=== PATIENT | female | born 1975 | race Caucasian/White ===

== ENCOUNTER 2018-05-21 06:03 | Inpatient (IN) ==
[~2018-05-21 06:03] MED LIST: LIDOCAINE W/ SODIUM BICARB 0.5 ML SYR ONE; LIDOCAINE W/ SODIUM BICARB 0.5 ML SYR SUBD ONE; Lactated Ringers 1,000 ML PRIMARY IV ONE; Nasal Sanitizer POPSWAB ampule 3 AMP (Nozin) PREOP DOSE ENOS SCH; Sodium Chloride 0.9% 250 ML ONE; Vancomycin Inj 1gm vial ONE; ceFAZolin Inj 2gm (Premix) 2 GM/50 ML BAG IV ONE
[2018-05-21 06:23] LABS: BILIRUBIN,URINE SMALL (NEG); CLARITY,URINE CLEAR (CLEAR); COLOR,URINE YELLOW (Y); GLUCOSE, URINE (UA) NEGATIVE (NEG); OCCULT BLOOD,URINE NEGATIVE (NEG); PROTEIN,URINE TRACE mg/dl (NEG); UROBILINOGEN,URINE 0.2 EU/dL (0.2)
[2018-05-21 06:27] LABS: URINE SAMPLE TYPE CLEAN CATCH URINE
[2018-05-21] MEDS ORDERED: fentaNYL Inj 100 MCG/2 ML VIAL ONE (06:51)
[2018-05-21] MEDS ORDERED: fentaNYL Inj 100 MCG/2 ML VIAL IVP ONE (06:52)
[2018-05-21] MEDS ORDERED: Sodium Chloride 0.9% vial 30 ML ONE (07:10)
[2018-05-21] MEDS ORDERED: BUPIVACAINE 0.25% W/ EPI - 10 ML VIAL ONE (07:11)
[2018-05-21] MEDS ORDERED: BACITRACIN 50,000 UNIT VIAL IRRIG ONE (07:11)
[2018-05-21] MEDS ORDERED: fentaNYL Inj 250 MCG/5 ML VIAL ONE (07:32)
[2018-05-21] MEDS ORDERED: SUCCINYLCHOLINE CHLORIDE 20 MG/1 ML - 10 ML ONE (07:35)
[2018-05-21] MEDS ORDERED: ROCURONIUM 10 MG/1 ML - 5 ML VIAL IVP ONE (07:35)
[2018-05-21] MEDS ORDERED: KETAMINE HCL 100 MG/2 ML SYRINGE IV ONE (07:35)
--- NOTE | 2018-05-21 12:02 | CRNA.PROGR ---
Anesthesia Time - Procedure/Recovery Time Start Date: 05/21/18 End Date: 05/21/18 Anesthesia : Time In: 07:42 Anesthesia : Time Out: 12:04 Anesthesia : Total Time: 262 - Total Anesthesia Time Total Anesthesia Time (minutes): 262 - Other Weight: 90.718 kg Height: 5 ft 2 in Body Mass Index (BMI): 36.6 Physical Status: P2 Anesthesia Type: General Anesthesia : ET
[2018-05-21] MEDS ORDERED: LIDOCAINE W/ SODIUM BICARB 0.5 ML SYR SUBD PRN (12:03)
[2018-05-21] MEDS ORDERED: ONDANSETRON 4 MG/2 ML VIAL IVP PRN ×2 (12:03→13:26)
[2018-05-21] MEDS ORDERED: fentaNYL Inj 100 MCG/2 ML VIAL IVP PRN (12:03)
--- NOTE | 2018-05-21 12:03 | CRNA.PROGR ---
Anesthesia Recovery Phase I - Post Anesthesia Evaluation Patient's Condition on Arrival in Phase I: Stable Patient's Condition on Arrival in Phase II: Stable Pain Level: 6
[2018-05-21] MEDS ORDERED: HYDROmorphone 2 MG/1 ML ONE ×2 (12:04→12:30)
[2018-05-21] MEDS: HYDROmorphone 2 MG/1 ML IVP PRN ×7 (12:05→13:20)
[2018-05-21] MEDS ORDERED: Lactated Ringers 1,000 ML PRIMARY IV SCH (12:15)
[2018-05-21] MEDS ORDERED: BISACODYL 5 MG TABLET PO PRN (13:26)
[2018-05-21] MEDS ORDERED: Metoclopramide Inj 10 MG/2 ML VIAL IVP PRN (13:26)
[2018-05-21] MEDS ORDERED: Ondansetron ODT Tab 4 MG TAB PO PRN (13:26)
[2018-05-21] MEDS ORDERED: Fleet Enema 133ml RECTAL PRN (13:26)
[2018-05-21] MEDS ORDERED: MAGNESIUM 400 MG/5 ML - 30 ML (MILK OF MAGNESIA) PO PRN (13:26)
[2018-05-21] MEDS ORDERED: MAGNESIUM CITRATE 296 ML SOLUTION PO PRN (13:26)
[2018-05-21] MEDS ORDERED: Vancomycin-PHA to Dose IV SCH (13:26)
[2018-05-21] MEDS ORDERED: HYDROcodone-APAP 7.5 MG-325 MG TABLET PO PRN (13:26)
[2018-05-21] MEDS ORDERED: OMEPRAZOLE 40 MG CAPSULE PO PRN (13:26)
[2018-05-21] MEDS ORDERED: [UNRECOGNIZED DRUG - REMARK] PO SCH (13:26)
[2018-05-21] MEDS ORDERED: PROMETHAZINE 25 MG/1 ML VIAL IM PRN (13:26)
[2018-05-21] MEDS ORDERED: Prochlorperazine Edisylate Inj 10mg/2ml vial IVP PRN (13:26)
[2018-05-21] MEDS ORDERED: DOCUSATE 100 MG CAPSULE PO PRN (13:26)
[2018-05-21] MEDS: DIAZEPAM 5 MG TABLET PO PRN (13:52)
[2018-05-21] MEDS: MORPHINE SULFATE 2 MG/1 ML IVP PRN ×3 (13:53→21:50)
[2018-05-21] MEDS: HYDROcodone-APAP 10 MG-325 MG TABLET PO PRN ×3 (14:19→22:26)
[2018-05-21] MEDS ORDERED: ALBUTEROL SULFATE 2.5 MG/3 ML NEB PRN (15:00)
[2018-05-21] MEDS: ceFAZolin Inj 1 GM in Sodium Chloride 0.9% 100 ML IV SCH (16:34)
--- NOTE | 2018-05-21 16:41 | CRNA.PROGR ---
Anesthesia Note - Progress Notes Anesthesia Progress Note: pt progressed well through recovery and stable to room. pt recovering well from surgery and anesthesia further follow up at patient/surgeon request PRN
--- NOTE | 2018-05-21 17:16 | NEURO.PROG ---
Subjective Post Op Day: 0 Pain Management: PO Vitale Catheter: Yes Flatus: Yes Diet: Regular Ambulating: Yes Additional Details: Awake and alert in med/surg room. Surgical pain. Right hand and arm still with some tingling. Neck - soft/flat. Dressing - clean/dry/intact. 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 Can easily raise arms and put on head and straight up in the air bilaterally. PLAN: 1.) Continue post-operative antibiotics. 2.) Continue post-operative pain control. 3.) Mobilize. Objective : Data - Vital Signs Vital Signs and I&O: Vital Signs - Last Taken Temperature 97 F 05/21/18 14:30 Pulse Rate 85 05/21/18 14:30 Respiratory Rate 16 05/21/18 14:30 Blood Pressure 121/80 05/21/18 14:30 Pulse Ox 94 05/21/18 14:30 Intake and Output (24hr x 4 totals) 05/19/18 05/20/18 05/21/18 05/22/18 05:59 05:59 05:59 05:59 Intake Total 2300 / 2300 Output Total 220 / 220 Balance 2080 / 2080
--- NOTE | 2018-05-21 17:24 | PDOC ---
HPI - History of Present Illness Date of Service: 05/21/18 Time of Service: 17:16 Chief Complaint: neck and arm pain History of Present Illness: This is a very pleasant 42 YO female with depression, GERD, hypothyroidism, tobacco abuse, and recent cervicak radiculopathy who presented today for surgery for her neck. The patient had an ACDF with Dr. Bay, please see his post operative not for further details. After the surgery, patient complains of neck pain, but has normal movements to her arms bilaterally. She denies any chest pain, SOB, N/V. She states her medical issues are well controlled, though her depression has been worse situationally with her 's recent hand injury and out of work for a while. She has no other complaints. The hospitalist service is asked to see the patient to address these medical issues during her hospital stay. Had cervical radiculopathy symptoms with right arm pain, numbness in fingers. Past Medical History Medical History: 1. GERD. 2. tobacco abuse. 3. depression. 4. hypothyroidism Surgical History: 1. hysterectomy. 2. ovary removal, bilateral. 3. cholecysectomy. 4. two breast cysts removed. 5. groin cyst removed. Pertinent Family History: mother with valvular heart disease, just recently had valve surgery. Past Social History: smokes 1/2 ppd, occasional alcohol use. has healthy children. . Lives in [place], [place]. 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 Tobacco Use: Current Every Day Smoker In the Past 12 Months, Have Used or Abuse Any of the Following Substance: Marijuana Alcohol Use: Occasionally Medication / Allergies Home Medications: Home Medications Medication Instructions Recorded Confirmed Type albuterol sulfate HFA 90 1 puff INH Q6H PRN 04/28/18 05/20/18 History mcg/actuation aerosol inhaler alprazolam 0.5 mg tablet 0.5 mg PO BID 04/28/18 05/20/18 History cetirizine 10 mg tablet 10 mg PO QDAY 04/28/18 05/20/18 History divalproex 500 mg tablet,delayed 500 mg PO BID 04/28/18 05/20/18 History release estradiol 1 mg tablet 1 mg PO QDAY 04/28/18 05/20/18 History fluticasone 44 mcg/actuation HFA 1 inh INH BID 04/28/18 05/20/18 History aerosol inhaler hydrocodone 7.5 mg-acetaminophen 1 tab PO QID PRN 04/28/18 05/20/18 History 325 mg tablet levothyroxine 75 mcg capsule 75 mcg PO QDAY 04/28/18 05/20/18 History liothyronine 5 mcg tablet 5 mcg PO ONCE 04/28/18 05/20/18 History gabapentin 300 mg capsule 300 mg PO BID 05/15/18 05/20/18 History Omeprazole 40 mg PO PRN PRN 05/20/18 05/20/18 History Allergies/Adverse Reactions: Allergies Allergy/AdvReac Type Severity Reaction Status Date / Time No Known Allergies Allergy Verified 05/20/18 09:22 Review of Systems - Respiratory Respiratory: REPORTS: Negative System Review - Cardiovascular Cardiovascular: REPORTS: Negative System Review - Gastrointestinal Gastrointestinal / Abdominal: REPORTS: Negative System Review Exam - Vitals Vital Signs: Vital Signs Temperature 97 F Temperature Source Temporal Artery Scan Pulse Rate [Pulse Oximeter] 85 Pulse Rate 80 Respiratory Rate 16 Blood Pressure [Right Arm] 121/80 Blood Pressure 109/95 Pulse Ox 94 Oxygen Flow Rate 0.5 Oxygen Delivery Method Nasal Cannula Height 5 ft 2 in Weight 200 lb - General General Appearance: No Acute Distress, Cooperative - Eye Eye Exam: POSITIVE: No Scleral Icterus - ENT ENT Exam: POSITIVE: Mucous Membranes Moist - Neck Additional Neck Exam Details: dressing is C/D/I on right side, drain in place. - Respiratory Respiratory Exam: POSITIVE: Clear to Auscultation - Bilaterally, Breathing Non Labored - Cardiovascular Cardiovascular Exam: POSITIVE: RRR, No Murmur, No Clicks, No Gallops, No Rubs, No JVD - GI/Abdominal GI/Abdominal Exam: POSITIVE: Normal Bowel Sounds, Non Tender, Non Distended, Soft - Rectal Rectal Exam: POSITIVE: Deferred - External Exam: POSITIVE: Deferred Exam: POSITIVE: Deferred - Extremities Extremities Exam: POSITIVE: No Clubbing Present, No Edema Present, No Cyanosis Present - Neurological Neurological Exam: POSITIVE: Alert, Oriented x 3, No Facial Droop, Speech Intact / Clear Assessment and Plan - Patient Problems (1) Depression Current Visit: Yes Status: Acute Code(s): F32.9 - Major depressive disorder, single episode, unspecified Qualifiers: Depression Type: other depression Qualified Code(s): F32.89 - Other specified depressive episodes (2) GERD (gastroesophageal reflux disease) Current Visit: Yes Status: Acute Code(s): K21.9 - Gastro-esophageal reflux disease without esophagitis Qualifiers: Esophagitis presence: esophagitis presence not specified Qualified Code(s): K21.9 - Gastro-esophageal reflux disease without esophagitis (3) Hypothyroidism Current Visit: Yes Status: Acute Code(s): E03.9 - Hypothyroidism, unspecified Qualifiers: Hypothyroidism type: unspecified Qualified Code(s): E03.9 - Hypothyroidism, unspecified (4) Tobacco abuse Current Visit: Yes Status: Acute Code(s): Z72.0 - Tobacco use (5) Asthma Current Visit: Yes Status: Chronic Code(s): J45.909 - Unspecified asthma, uncomplicated Qualifiers: Asthma severity: mild Asthma persistence: intermittent Asthma complication type: uncomplicated Qualified Code(s): J45.20 - Mild intermittent asthma, uncomplicated (6) Hx of cervical spine surgery Current Visit: Yes Status: Acute Code(s): Z98.890 - Other specified postprocedural states - Assessment / Plan Additional Assessment/Plan Details: Continue home medications. I note that hydrocodone has been discontinued from home medications and I will defer pain management to neurosurgery. At this time no evidence of any asthma exacerbations. Managed expectantly. continue antidepressants I offered her a chance to discuss financial impacts of hospital stay with business office, but patient declined continue thyroid replacements. thank you for consult, will be glad to assist patient with medical issues during hospital stay.
--- NOTE | 2018-05-21 17:31 | GEN.OPNOTE ---
Operative Note Surgery Date: 05/21/18 Preoperative Diagnosis: 1. Progressively worsening neck pain. 2. Progressively worsening right upper extremity radicular symptoms in the C6 and C7 distribution (also in C8 distribution from unclear etiology). 3. Cervical degenerative disc disease early advanced C5-6 and C6-7. 4. Bilateral severe C5-6 neural foraminal stenosis secondary to prominent uncal vertebral joint hypertrophy bilaterally. 5. Severe right C6-7 neural foraminal stenosis secondary to prominent uncal vertebral joint hypertrophy. Postoperative Diagnosis: 1. Progressively worsening neck pain. 2. Progressively worsening right upper extremity radicular symptoms in the C6 and C7 distribution (also in C8 distribution from unclear etiology). 3. Cervical degenerative disc disease early advanced C5-6 and C6-7. 4. Bilateral severe C5-6 neural foraminal stenosis secondary to prominent uncal vertebral joint hypertrophy bilaterally. 5. Severe right C6-7 neural foraminal stenosis secondary to prominent uncal vertebral joint hypertrophy. Procedure: 1.) C5-6 anterior cervical discectomy for decompression of the cervical spinal canal with removal of the posterior longitudinal ligament and foraminotomies bilaterally for decompression of the severe neuroforaminal stenosis bilaterally. (CPT code: 30848). 2.) C6-7 anterior cervical discectomy for decompression of the cervical spinal canal with removal of the posterior longitudinal ligament and foraminotomies bilaterally for decompression of the severe right neuroforaminal stenosis. (CPT code: 81854). 3.) Arthrodesis, anterior interbody technique, C5-6 in preparation for fusion of the C5-6 interspace. (CPT code: 12224). 4.) Arthrodesis, anterior interbody technique, C6-7 in preparation for fusion of the C6-7 interspace. (CPT code: 91285). 5.) Insertion of a 6 mm x 14 mm x 12 mm 6-degree lordotic [place] Tritanium C titanium anterior cervical cage filled in the center with DBM putty (allograft) into the C5-6 interspace for fusion of the C5-6 interspace. (CPT code: 73891). 6.) Insertion of a 7 mm x 14 mm x 12 mm 6-degree lordotic [place] Tritanium C titanium anterior cervical cage filled in the center with DBM putty (allograft) into the C6-7 interspace for fusion of the C6-7 interspace. (CPT code: 98302). 7.) Anterior cervical plating, C5-7 using a 2- level, 6-hole 30 mm Styker Aviator titanium anterior cervical plate affixed to the C5 vertebral body with 4.0 mm x 16 mm variable angle titanium anterior cervical screws and to the C6 vertebral body using a 4.0 mm x 14 mm variable angle and a 4.0 mm x 14 mm fixed angle titanium anterior cervical screws, and to the C7 vertebral body using 4.0 mm x 16 mm fixed angle titanium anterior cervical screws. (CPT code: 69814). 8.) Use of 2.5 cc of [place] BIO DBM Plus Putty with Cancellous (implantable allograft) for filling of the Tritanium C anterior cervical cage. (CPT code: 97740). 9.) Use of the operative microscope for the microsurgical techniques used for the C5-6 & C6-7 discectomies. (CPT code: 41038). 10.) Use of intra-operative fluoroscopy for localization of the correct surgical level and for confirmation of the final position of the intervertebral cage and for the confirmation of the final position of the anterior cervical hardware elements. 11.) Use of intra-operative neuromonitoring including free running EMG's, SSEP's, and MEP's. Surgeon: Jose Alejandro Bay MD Mold Puller: GEMINI Ugarte Anesthesia Provider: Phan Aquino MD Anesthesia Type: General Estimated Blood Loss (mL): 20 Fluids: See anesthesia record Pathology: None Indications: Ms. Flores is a 42 year old woman referred by Dr. Woods in [place] for neck and right arm pain. Ms. Flores has pain that radiates into her right shoulder blade. The pain radiates down her right arm. She states it is a shooting pain down her arm. She reports tingling and a "pins and needles" feeling in her right arm. She states her fingertips on her right middle and pointer fingers are numb. Ms. Flores reports weakness in her right hand and frequently drops things. [place] [facility] [place] disease at C5-6 and C6-7 with loss of approximately 50% of the disc space height at C5-6 and about 25% of the disc space height at C6-7. There are bilateral uncal osteophyte complexes at C5-6 that produce severe neural foraminal stenosis bilaterally. At the C6-7 level there is a large uncal vertebral joint complex on the right producing severe right C6-7 neural foraminal stenosis. We had discussed the option of proceeding with surgical treatment, a C5-6 and C6-7 anterior cervical discectomy and fusion to address her symptoms. She wished to proceed with that surgical procedure. Findings: 1.) Severe right C5-6 and C6-7 neuroforaminal stenosis. 2.) Severe left C5-6 neuroforaminal stenosis. Complications: None Operative Summary: Ms. Vargas was met in the preoperative area. The surgical history and physical in her chart was reviewed. The procedure to be performed was confirmed with Ms. Vargas and we were in agreement on the procedure to be performed and this matched what was written on the patient's consent form. Any questions that Mrs. Vargas had before going back to the operating room were answered to her satisfaction. Ms. Vargas was brought back to the operating room suite and moved over onto the surgical bed in the supine position. General anesthesia was induced and she was intubated by the anesthesia staff. She had a Vitale catheter placed or bladder for the procedure. She had pneumatic compression hose placed on her lower legs bilaterally. Her head rested in a gel ring with a rolled up towel placed between her shoulder blades to let her shoulders gently drop posteriorly to assist with imaging during the procedure. Her arms were gently tucked at her sides and all bony prominences were well padded. The C-arm fluoroscopy unit was used to help localize the skin incision for the approach to the intended surgical levels. The intended skin incision was demarcated along the medial border of the sternocleidomastoid muscle using a skin marker and several crosshatches were made with a skin marker as well. Ms. Vargas was prepped and draped in the usual and standard fashion. She was given 2 g of Ancef and 1 g of vancomycin IV for perioperative antibiosis. She was given 20 mg of Decadron IV. A standard surgical timeout was performed identifying the correct patient, the and the correct equipment being available for the procedure. The intended skin incision was injected subcutaneously with quarter percent Marcaine with 1 in 200,000 epinephrine. Approximately 5 mL of local anesthetic was used. The skin was incised with a 10 blade scalpel and all dermal and superficial bleeding points coagulated with bipolar cautery. The dissection was taken through the subcutaneous tissue down to the level of the platysma muscle. The platysma muscle was opened in the direction of the skin incision with the Metzenbaum scissors. This allowed identification of the medial border of the sternocleidomastoid muscle. Further dissection identified the rostral border of the omohyoid muscle. There was a vein encountered crossing transversely just above the rostral border of the omohyoid muscle. This vein was carefully dis sected out such that it could be retracted medially during the surgical procedure. Dissection was continued medial to the sternocleidomastoid muscle and rostral to the omohyoid muscle in both a sharp and blunt fashion down to the prevertebral fascia. The carotid artery was palpated to be lateral to the dissection plane. A hand-held Cloward retractors were used to gently retract and protect the soft tissues. A Kitner instrument was used to carefully dissect the prevertebral fascia. When I disc space became exposed and bent spinal needle was placed into the disc space and the exposed level was localized with lateral fluoroscopy. Continued prevertebral dissection was performed until the C5-C6 and C7 vertebral bodies were exposed as well as the C5-6 and C6-7 disc spaces. The medial border of the longus coli muscle was dissected bilaterally using Bovie cautery with an insulated tip turned down to a low setting. The hand-held Cloward retractors were then replaced with a scan coordinator self-retaining retractor system which was first placed across the C5-6 level for the exposure of this level and the protection of the soft tissues at this level. 12 mm distraction pins were placed into the C5 and C6 vertebral bodies. The operative microscope was brought into the surgical field and used for microsurgical techniques used for the C5-6 discectomy. An annulotomy was performed with a 15 blade scalpel and disc material was removed with a pituitary rongeur. Additional disc and cartilaginous endplate was loosened in the disc space using small straight curettes. The fragments of disc and cartilaginous endplate were then removed with a pituitary rongeur. The [employer] high-speed Twillion Franklin Guerda drill with a matchstick bit was used to decorticate the C5 and C6 endplates in preparation for fusion of the C5-6 interspace. The same drill with the same bit was used to drill away the diffuse posterior osteophytes along the posterior inferior aspect of the C5 vertebral body and the posterior superior aspect of the C6 vertebral body as well as to drill away the uncal osteophytes laterally bilaterally and to perform foraminotomies bilaterally. A nerve hook was used to define the plane between the posterior longitudinal ligament and the sure. The posterior longitudinal ligament was completely removed in the interspace using small Kerrison punch. Same instrument was used to extend the foraminotomies bilaterally that had been started with a high-speed drill with a matchstick bit. Excellent decompression of the spinal canal and neuroforamen was assured both by visual inspection as well as by palpation with a nerve hook underneath the vertebral bodies and out the neuroforamen bilaterally. The interspace was irrigated with bacitracin irrigation. FloSeal hemostatic agent was placed over the exposed dural elements. The interspace was sized the appropriate size anterior cervical cage. A 6 mm x 17 mm x 14 mm 6 lordotic [place] Tritanium C titanium anterior cervica l cage was selected and filled in the center with [place] bio DBM plus putty with cancellus (allograft) was inserted into the C5-6 interspace with the refrigeration plant cork insulator. It was gently tamped into position using the bone tamp and mallet. The cage obtained good purchase between the C5 and C6 endplates. Lateral fluoroscopy demonstrated the cage to be somewhat deep posteriorly. The cage was subsequently removed and replaced with a 6 mm x 14 mm x 12 mm (small footprint) 6-degree lordotic Tritanium C anterior cervical cage filled in the center with [place] bio DBM plus putty with cancellus Lori allograft). Cage obtained good purchase between the C5 and C6 endplates. Lateral fluoroscopy demonstrated the cage to be in good position with no posterior extension into the anterior spinal canal. The C5 distraction pin was removed. Bony bleeding was controlled with FloSeal hemostatic agent surgical dennis. The scan coordinator self-retaining retractor system was removed and placed across the C6-7 interspace for the exposure of this level and the protectors protection of the soft tissues at this level. The 12 mm [place] distraction pin was placed into the C7 vertebral body. The operative microscope was used for microsurgical techniques used for the C6-7 discectomy. An annulotomy was performed with a 15 blade scalpel and disc material was removed with a pituitary rongeur. Additional disc and ca rtilaginous endplate was loosened in the disc space using small straight curettes. The fragments of disc and cartilaginous endplate were then removed with a pituitary rongeur. The [employer] high-speed Twillion Franklin [place] drill with a matchstick bit was used to decorticate the C6 and C7 endplates in preparation for fusion of the C6-7 interspace. The same drill with the same bit was used to drill away the diffuse posterior osteophytes along the posterior inferior aspect of the C6 vertebral body and the posterior superior aspect of the C7 vertebral body as well as to drill away the uncal osteophytes laterally bilaterally and to perform foraminotomies bilaterally. A nerve hook was used to define the plane between the posterior longitudinal ligament and the sure. The posterior longitudinal ligament was completely removed in the interspace using small Kerrison punch. Same instrument was used to extend the foraminotomies bilaterally that had been started with a high-speed drill with a matchstick bit. Excellent decompression of the spinal canal and neuroforamen was assured both by visual inspection as well as by palpation with a nerve hook underneath the vertebral bodies and out the neuroforamen bilaterally. The interspace was irrigated with bacitracin irrigation. FloSeal hemostatic agent was placed over the exposed dural elements. The interspace was sized the appropriate size anterior cervical cage. A 7 mm x 14 mm x 12 mm 6 lordotic [place] Tritanium C titanium anterior cervical cage was selected and filled in the center with [place] bio DBM plus putty with cancellus (allograft) was inserted into the C6-7 interspace with the refrigeration plant cork insulator. It was gently tamped into position using the bone tamp and mallet. The cage obtained good purchase between the C6 and C7 endplates. Lateral fluoroscopy demonstrated the cage to be in good position. The C6 and C7 [place] distraction pins were removed. Bony bleeding was controlled with FloSeal hemostatic agent and a surgical padding. The appropriate size anterior cervical plate was selected both by visual inspection as well as by lateral fluoroscopy. A 2 level, 6 hole, 30 mm Kennedy aviator titanium anterior cervical plate was selected and affixed to the C5 vertebral body using 4.0 mm x 16 mm variable angle titanium screws and to the C6 vertebral body using a 4.0 mm x 14 mm variable angle titanium anterior cervical screw and a 4.0 mm x 14 mm fixed angle titanium anterior cervical screw into the C7 vertebral body using 4.0 mm x 16 mm fixed angle titanium anterior cervical screws. The screws all obtained good purchase in the vertebral body bone. The locking mechanism was then deployed with visual inspection used to ensure that the locking mechanism fully engaged across each of the screw heads at each of the levels bilaterally. The scan coordinator self-retaining retractor system was removed. The surgical site was copiously irrigated with bacitracin irrigation. The stiles as the dissection plane reinspected for any bleeding points. Any identified were coagulated with bipolar cautery. The surgical site was copiously irrigated with bacitracin irrigation again allowing the irrigant to sit looking for identification any further bleeding points. None were identified. A medium YINA drain was placed into the surgical site. The closure portion of the procedure was begun. The platysma muscle was reapproximated with 3-0 Vicryl suture in an interrupted fashion. The dermis and superficial subcutaneous tissue was reapproximated with 3-0 Vicryl suture in an inverted interrupted fashion. The final layer of closure was performed with a 4-0 Monocryl in running subcuticular fashion. The [place] drape was pulled back from the skin edges. The incision was cleansed with bacitracin soaked sponge and dried with a sterile dry sponge. Steri-Strips were placed across the incision. The incision was dressed with cover term dressing. The surgical drain was secured with suture. The drain site was then dressed. All surgical drapes removed from Ms. Vargas. She was carefully moved over onto the PACU stretcher. She was awoken and extubated by the anesthesia staff. She was taken to the recovery room in stable condition. All surgical counts reported as correct by the scrub and circulating personnel. A physician's certified ophthalmic surgical assistant, Mrs. Criss Ayala PA-C, assisted with the procedure including the exposure and closure portions of the procedure. She also provided irrigation and suctioning throughout the procedure.
[2018-05-21] MEDS: Dexamethasone Tab 4 MG TABLET PO SCH (18:14)
[2018-05-21] MEDS: GABAPENTIN 300 MG CAPSULE PO SCH (20:16)
[2018-05-21] MEDS: DIVALPROEX SODIUM 250 MG TABLET PO SCH (20:16)
[2018-05-21] MEDS: DIAZEPAM 10 MG/2 ML (5 MG/1 ML) CARPUJECT IVP PRN (20:16)
[2018-05-21] MEDS: ALPRAZolam Tab 1 MG TABLET PO SCH (21:50)
[2018-05-22] MEDS: ceFAZolin Inj 1 GM in Sodium Chloride 0.9% 100 ML IV SCH (00:12)
[2018-05-22] MEDS: Dexamethasone Tab 4 MG TABLET PO SCH ×3 (00:12→11:10)
[2018-05-22] MEDS: FLUTICASONE PROPIONATE 110 MCG INH SCH ×2 (01:19→07:49)
[2018-05-22] MEDS: MORPHINE SULFATE 2 MG/1 ML IVP PRN ×3 (01:24→09:53)
[2018-05-22] MEDS: DIAZEPAM 10 MG/2 ML (5 MG/1 ML) CARPUJECT IVP PRN (02:13)
[2018-05-22] MEDS: HYDROcodone-APAP 10 MG-325 MG TABLET PO PRN ×4 (02:14→13:53)
[2018-05-22 05:11] VITALS: RESP 16
[2018-05-22 05:20] LABS: BASOPHILS # (AUTO) 0.01 10*3/UL; BASOPHILS % (AUTO) 0.1 % (0-1); EOSINOPHILS # (AUTO) 0 10*3/UL; EOSINOPHILS % (AUTO) 0 % (0-8); Hematocrit [HCT] 34.7 % (37.0-47.0); Hemoglobin [HGB] 11.7 g/dL (12.0-16.0); MEAN CORPUSCULAR HEMOGLOBIN 31.9 PG (27-31); MEAN CORPUSCULAR HGB CONC 33.7 g/dL (33-37); MEAN CORPUSCULAR VOLUME 94.6 FL (81-99); MEAN PLATELET VOLUME 10.1 FL (7.4-12.2); MONOCYTES # (AUTO) 0.24 10*3/UL (0.3-0.8); NEUTROPHILS # (AUTO) 10.61 10*3/UL; NEUTROPHILS % (AUTO) 87.9 % (50-80); RED BLOOD COUNT 3.67 10^6/uL (4.20-5.40)
[2018-05-22 05:30] LABS: BLOOD UREA NITROGEN 13 mg/dL (7-22); BUN/CREATININE RATIO 21.66 (6-20)
[2018-05-22] MEDS ORDERED: LEVOTHYROXINE 75 MCG PO SCH (05:30)
[2018-05-22] MEDS ORDERED: LIOTHYRONINE SODIUM 5 MCG PO SCH (05:30)
[2018-05-22] MEDS ORDERED: LEVOTHYROXINE 75 MCG TABLET PO SCH (05:30)
[2018-05-22 05:37] LABS: PLATELET MORPHOLOGY COMMENT NORMAL MORPHOLOGY (NORM); RBC MORPHOLOGY COMMENT NORMAL MORPHOLOGY (NORM); WBC MORPHOLOGY COMMENT NORMAL MORPHOLOGY (NORM)
--- NOTE | 2018-05-22 06:47 | NEURO.PROG ---
Subjective Post Op Day: 1 Pain Management: PO Valadez Catheter: Yes Diet: Regular Ambulating: Yes Additional Details: Nancy is awake and alert. She is moving all extremities. She has good arm and hand strength bilaterally. She complained of neck pain at the incision site and pain between her shoulder blades. Incision is dry and intact. Drainage is minimal. Plan is to discontinue neck drain and valadez catheter. Continue to mobilize. She is cleared for discharge from a neuro standpoint if she has adequate pain control. Objective : Data - Labs CBC and BMP: 05/22/18 04:51 05/22/18 04:51 - Vital Signs Vital Signs and I&O: Vital Signs - Last Taken Temperature 98.7 F 05/22/18 05:00 Pulse Rate 89 05/22/18 05:00 Respiratory Rate 16 05/22/18 05:00 Blood Pressure 104/60 05/22/18 05:00 Pulse Ox 92 05/22/18 05:28 Intake and Output (24hr x 4 totals) 05/20/18 05/21/18 05/22/18 05/23/18 05:59 05:59 05:59 05:59 Intake Total 5067 / 5067 Output Total 2565 / 2565 Balance 2502 / 2502
[2018-05-22] MEDS: DIAZEPAM 5 MG TABLET PO PRN ×2 (07:25→13:53)
[2018-05-22] MEDS ORDERED: ESTRADIOL 1 MG TABLET PO SCH (09:00)
[2018-05-22] MEDS ORDERED: LORATADINE 10 MG TABLET PO SCH (09:00)
[2018-05-22] MEDS: DIVALPROEX SODIUM 250 MG TABLET PO SCH (09:53)
[2018-05-22] MEDS: ALPRAZolam Tab 1 MG TABLET PO SCH (09:54)
[2018-05-22] MEDS: GABAPENTIN 300 MG CAPSULE PO SCH (09:55)
--- NOTE | 2018-05-22 10:43 | PT.PROG ---
Progress Note Progress Note: S. patient stated that she is feeling alright this afternoon, she states she is a little dizzy this morning. O. Patient ambulated 150 feet around the nurses station then ascended and descended 12 stairs and returned to her room where she was left in bed with alarm and call light. A. Patient tolerated ambulation and stair training well, she has some weakness and dizziness however was able to ambulate full distance with one short standing rest break and Contact guard assist. P. Patient has met all goals at this time.
--- NOTE | 2018-05-22 11:58 | DCSUMMARY ---
Hospitalization Summary Admit Date: 05/21/2018 Discharge Date: 05/22/18 Primary Diagnosis:: status post neck surgery Hospital Course: This is a 42-year-old female that presented here for neck surgery yesterday with Dr. Bay. See his surgical notes regarding the procedure. Postoperatively, she has done well, her pain is controlled, her catheters, and she is ambulatory and she is cleared from a neurosurgical perspective to discharge home. She has a [place] c-collar in place. In terms of her medical issues of hypothyroidism, depression, she is stable and at her baseline. She does not have any suicidal ideation with her depression. She wants to try to continue to quit smoking, and she did very well on nicotine patches like to try that again side written a prescription for nicotine patches and suggested that she called [employer] for free or reduced tobacco cessation products as well as support. Today, no chest pain, shortness breath, nausea or vomiting. Assessment and Plan: 1. As per discharge assessments noted 2. Disposition: Patient is discharged home. 3. Condition on discharge, stable and improved. 4. Diet: regular diet 5. Activities: As per instructions from Dr. Bay 6. Follow-Up: 1. Primary provider in 7 days 7. Medications at the Time of Discharge: Home Medications Medication Instructions Recorded Confirmed Type albuterol sulfate HFA 90 1 puff INH Q6H PRN 04/28/18 05/20/18 History mcg/actuation aerosol inhaler alprazolam 0.5 mg tablet 0.5 mg PO BID 04/28/18 05/20/18 History cetirizine 10 mg tablet 10 mg PO QDAY 04/28/18 05/20/18 History divalproex 500 mg tablet,delayed 500 mg PO BID 04/28/18 05/20/18 History release estradiol 1 mg tablet 1 mg PO QDAY 04/28/18 05/20/18 History fluticasone 44 mcg/actuation HFA 1 inh INH BID 04/28/18 05/20/18 History aerosol inhaler levothyroxine 75 mcg capsule 75 mcg PO QDAY 04/28/18 05/20/18 History liothyronine 5 mcg tablet 5 mcg PO ONCE 04/28/18 05/20/18 History gabapentin 300 mg capsule 300 mg PO BID 05/15/18 05/20/18 History Omeprazole 40 mg PO PRN PRN 05/20/18 05/20/18 History Cyclobenzaprine HCl [Flexeril] 10 mg PO TID #60 tab 05/22/18 Rx HYDROcodone/APAP 10/325 Tab 1 - 2 tab PO Q4H PRN #60 tab 05/22/18 Rx [Hydrocodon-Acetaminoph 10/325 Tab] Nicotine 14mg Patch [Nicoderm CQ 1 patch TRANSDERM DAILY #30 patch 05/22/18 Rx 14mg Patch] Surgical observation discharge Exam - Vitals Vital Signs: Vital Signs Temperature 98.4 F Temperature Source Temporal Artery Scan Pulse Rate [Pulse Oximeter] 89 Pulse Rate 80 Respiratory Rate 16 Blood Pressure [Right Arm] 101/62 Blood Pressure 109/95 Pulse Ox 90 Oxygen Delivery Method Room Air Height 5 ft 2 in Weight 212 lb - General General Appearance: No Acute Distress, Cooperative - Eye Eye Exam: POSITIVE: No Scleral Icterus - ENT ENT Exam: POSITIVE: Mucous Membranes Moist - Neck Neck Exam: JVP is not Raised - Respiratory Respiratory Exam: POSITIVE: Clear to Auscultation - Bilaterally, Breathing Non Labored - Cardiovascular Cardiovascular Exam: POSITIVE: RRR, No Murmur, No Clicks, No Gallops, No Rubs, No JVD - GI/Abdominal GI/Abdominal Exam: POSITIVE: Normal Bowel Sounds, Non Tender, Non Distended, Soft - Extremities Extremities Exam: POSITIVE: No Clubbing Present, No Edema Present, No Cyanosis Present - Neurological Neurological Exam: POSITIVE: Alert, Oriented x 3, No Facial Droop, Speech Intact / Clear, Moves All Extremities Equally Data Peritnent Studies: Laboratory Results 05/22/18 05/22/18 04:51 04:51 WBC 12.07 H RBC 3.67 L Hgb 11.7 L Hct 34.7 L MCV 94.6 MCH 31.9 H MCHC 33.7 RDW Std Deviation 41.7 RDW Coeff of [place]on[place] 12.5 Plt Count 289 MPV 10.1 Immature Gran % (Auto) 0.1 Neut % (Auto) 87.9 H Lymph % (Auto) 9.9 L Hughes % (Auto) 2.0 L Eos % (Auto) 0 Baso % (Auto) 0.1 Immature Gran # (Auto) 0.01 Neut # (Auto) 10.61 Lymph # (Auto) 1.20 Hughes # (Auto) 0.24 L Eos # (Auto) 0 Baso # (Auto) 0.01 WBC Morphology Comment Normal morphology Plt Morphology Comment Normal morphology RBC Morph Comment Normal morphology Sodium 142 Potassium 4.4 Chloride 112 Carbon Dioxide 22 L Anion Gap 8 BUN 13 Creatinine 0.6 Estimated GFR > 60 BUN/Creatinine Ratio 21.66 H Glucose 140 H Calculated Osmolality 295.0 H Calcium 8.7 Patient Problems - Patient Problem List (1) Hx of cervical spine surgery Current Visit: Yes Status: Acute Code(s): Z98.890 - Other specified postprocedural states Category: Surgical (2) Depression Current Visit: Yes Status: Acute Code(s): F32.9 - Major depressive disorder, single episode, unspecified Qualifiers: Depression Type: other depression Qualified Code(s): F32.89 - Other specified depressive episodes Category: Medical (3) GERD (gastroesophageal reflux disease) Current Visit: Yes Status: Acute Code(s): K21.9 - Gastro-esophageal reflux disease without esophagitis Qualifiers: Esophagitis presence: esophagitis presence not specified Qualified Code(s): K21.9 - Gastro-esophageal reflux disease without esophagitis Category: Medical (4) Hypothyroidism Current Visit: Yes Status: Acute Code(s): E03.9 - Hypothyroidism, unspecified Qualifiers: Hypothyroidism type: unspecified Qualified Code(s): E03.9 - Hypothyroidism, unspecified Category: Medical (5) Tobacco abuse Current Visit: Yes Status: Acute Code(s): Z72.0 - Tobacco use Category: Medical (6) Asthma Current Visit: Yes Status: Chronic Code(s): J45.909 - Unspecified asthma, uncomplicated Qualifiers: Asthma severity: mild Asthma persistence: intermittent Asthma complication type: uncomplicated Qualified Code(s): J45.20 - Mild intermittent asthma, uncomplicated Category: Medical
[2018-05-22] MEDS ORDERED: NICOTINE 14 MG /DAY PATCH TRANSDERM SCH (12:30)
[2018-05-22 13:12] VITALS: BP 114/69; TEMP 97.2; O2SAT 93
--- NOTE | 2018-05-23 15:23 | PTI REPORT ---
Thank you for the referral of Nancy Flores. She was seen on 05/21/18 for an inpatient evaluation status post cervical fusion. SUBJECTIVE: The patient is a 42-year-old female who underwent a cervical fusion earlier today. The patient reports a pain level of 4/10 on the verbal analog scale (0=no pain, 10=worst pain) and states she just received pain medication approximately 30 minutes ago. The patient reports this is her first cervical spine surgery and prior to her surgery she was having quite a bit of right upper extremity numbness and tingling to her fingertips and also weakness of her right upper extremity secondary to pain. The patient states she does still have some numbness and tingling into her fingertips and overall is very sore and is very apprehensive about moving. The patient states that prior to her surgery she did get around pretty well without use of an assistive device but did complain of back pain at times after she was up for quite a while. The patient states that she lives in [place], [place] with her and kids. She does have a couple of stairs to get into her home and also has 8-10 stairs to get to the bedroom within the home. PAST MEDICAL HISTORY: Past medical history can be found in the patient's medical record. OBJECTIVE FINDINGS: General observations: The patient was alert and oriented to setting upon PT arrival. The patient's blood pressure was 112/78, oxygen saturation was 94%, and heart rate was 84 beats per minute. The therapist did discuss precautions with patient for status post cervical fusion including to keep moving but to avoid end ranges and also lifting precautions. The patient verbalized understanding of these precautions. Prior to us transferring, nursing staff did remove the IV and also did take the patient off the oxygen as they stated she did not need that anymore. The patient still had a catheter in place along with a drain. Bed mobility: The patient required min assist in order to go from supine to seated edge of bed position. The patient did require extra time to perform the transfer for sequencing and also due to feeling a little lightheaded. Once patient was seated edge of bed, her [place] neck collar was fit for her and a gait belt was placed around the patient. Once the cervical collar was in place, the patient stated that she felt like her neck was better protected and she felt more comfortable with trying walking. The patient transferred from seated edge of bed to supine with stand by assist x1 for safety. Transfers: The patient was able to perform a sit to stand transfer from the bed with contact guard assist x1 for safety. The patient demonstrated fair initial standing balance with hand hold assist x2 on the walker. She stated once she was up that she felt pretty weak, but was willing to try some walking as long as she could use the walker. The patient transferred from standing to bed with stand by assist x1 for safety. Ambulation: The patient was able to ambulate 30 feet with contact guard assist x1 and front wheeled walker. ASSESSMENT: The patient has good rehab potential. Problem List: Patient is status post cervical fusion Pain management Difficulties with transfers and ambulation Short-Term Goals: To be met by discharge from inpatient: Patient will be able to don and doff the [place] cervical collar independently. Patient will be able to transfer from bed to stand safely and independently. Patient will be able to ambulate at least 150 feet with least restrictive assistive device safely and independently. Patient will be able to perform one flight of stairs safely and independently. Long-Term Goals: To be met following discharge from inpatient: Patient may be seen by outpatient physical therapy if deemed necessary by her surgeon. TREATMENT PLAN: Patient will be seen B.I.D during the week and one time per day over the weekend as an inpatient to address the above goals and objectives. INITIAL TREATMENT: Treatment today consisted of the initial evaluation followed by one unit of functional activity. Following treatment, SCDs were placed back on the patient once she was supine in bed. Bed alarm was set and call light was placed within reach. Nursing staff was notified of the patient's progress with walking and was instructed that when she does get up and walk later that the cervical collar is in place and that they use the front wheeled walker at this time due to the patient's weakness and apprehension with motion. PANFILO
--- NOTE | 2018-05-23 16:10 | PT PM DAY ---
Diagnosis : Cervical Fusion PM - Physical Therapy S: The patient did request her neck brace. O: The patient performed ambulation and transfers. She made it two laps around the nurse's station and ascended and descended stairs and was able to demonstrate that she was independent in these activities. A: The patient did well with ambulation and transfers. She will be leaving for her home in [place] with her family as soon as the roads are open. At this point she has met all of her physical therapy goals and is safe for discharge. P: Continue seeing patient BID during the week and one time per day over the weekend until discharge. PANFILO
[2018-05-24] MEDS ORDERED: HYDROcodone-APAP 10 MG-325 MG TABLET PO ONE (16:45)
--- NOTE | 2018-05-26 14:07 | OTI REPORT ---
Thank you for the referral of Nancy Flores. She was seen on 05/22/18 for an occupational therapy inpatient evaluation status post cervical fusion. SUBJECTIVE: The patient is a 42-year-old female who had a cervical fusion. She does have a higher toilet and a shower chair. She is from the [facility]. She reports that she is having trouble with wiping herself. She was having a little bit of difficulty with dressing tasks prior to admission. The patient says that the pain in her neck is pretty moderate today at 5/10 on the verbal analog scale (0=no pain, 10=worst pain). PAST MEDICAL HISTORY: Past medical history can be found in the patient's medical record. OBJECTIVE FINDINGS: Bed mobility: The patient was able to come from supine to sit with mod assist. She did have a lot of neck pain. Activities of daily living: While sitting edge of bed we worked on dressing activities. She said that it did hurt her neck to bend over all the way to get dressed and it took some effort to bend her knees. The patient was issued a education analyst, sock aide, bath sponge, long handled shoe horn, and toilet tongs. The patient was instructed in how to use the toilet tongs to wipe self. She was instructed in how to use the education analyst and sock aide and she was able to do so independently. She was instructed how to use the shoe horn and bath sponge. Transfers: The patient was able to come from sit to stand with increased time but had increased pain in her neck when moving. ASSESSMENT: The patient would benefit from adaptive devices to help with her independence. Problem List: Increased pain Decreased ability to complete ADLs TREATMENT PLAN: Patient will be seen for initial evaluation only. The patient was issued adaptive equipment for home use. The patient will be discharged from OT services at this time. INITIAL TREATMENT: Treatment today consisted of the initial evaluation activities only. PANFILO
== END 2018-05-22 14:12 | disposition home or self-care (01) | DRG 473 ==
LOC: OPS 06:03 → EDSTATUS 07:30 → MED/SURG 13:07
PROVIDERS: ADMIT Neurological Surgery; ATTEND Neurological Surgery